=== PATIENT | female | born 1960 | race Caucasian/White ===

== ENCOUNTER 2021-07-15 06:24 | Day surgery (SDC) | payer BC ==
[2021-07-15] MEDS ORDERED: Sodium Chloride 0.9% 1,000 ML IV SCH (07:00)
[2021-07-15] MEDS ORDERED: Midazolam 1 MG/ML 2 ML SDV ONE (07:37)
[2021-07-15] MEDS ORDERED: Propofol 200 MG/20 ML SDV ONE (07:37)
[2021-07-15] MEDS ORDERED: fentaNYL 100 MCG/2 ML SDV ONE (07:37)
--- NOTE | 2021-07-15 11:14 | OR ---
DATE OF PROCEDURE: SURGEON: Abram Jensen MD PROCEDURE: Colonoscopy. FINDINGS: Normal colonoscopy. PREOPERATIVE DIAGNOSIS: Screening colonoscopy. POSTOPERATIVE DIAGNOSIS: Screening colonoscopy. RISKS: Risks, benefits, alternatives, and limitations including, but not limited to infection, bleeding, perforation, false positives and false negatives, and other risks not listed here and the patient understands these risks and wished to proceed. PROCEDURE IN DETAIL: The patient was placed in a left lateral decubitus position. Digital rectal exam was performed without abnormality. Scope was introduced and advanced atraumatically to the ileocecal valve. A photo was taken of the appendiceal orifice. The scope was brought back to the ascending, transverse, descending colon, and retroflexed. No evidence of old or new blood. No masses. No polyps. No diverticulosis. No colitis. No abnormalities on retroflexion. Greater than 8 minutes was spent removing the scope. Prep was acceptable, approximately 95% of the luminal surface could be seen. Abram Jensen MD /[id number]
== END 2021-07-15 09:30 | disposition home or self-care (01) ==
LOC: JP.SDS 06:24
PROVIDERS: ATTEND Surgery
DX: Z12.11 Encounter for screening for malignant neoplasm of colon (principal); I10 Essential (primary) hypertension; Z88.2 Allergy status to sulfonamides
CPT/HCPCS: 45378; J2250; J2704; J3010; J7030

== ENCOUNTER 2022-06-08 03:16 | Emergency (ER) | payer BC ==
[2022-06-08] MEDS ORDERED: Methocarbamol 500 MG Tab PO ONE (05:03)
== END 2022-06-08 06:22 | disposition home or self-care (01) ==
LOC: JP.ED 03:16
DX: M47.22 Other spondylosis with radiculopathy, cervical region (principal); M50.30 Other cervical disc degeneration, unspecified cervical region; I10 Essential (primary) hypertension; Z88.2 Allergy status to sulfonamides; Z79.899 Other long term (current) drug therapy; Z86.16 Personal history of COVID-19; Z90.710 Acquired absence of both cervix and uterus
CPT/HCPCS: 72125; 99283; A9270

== ENCOUNTER 2022-08-16 23:32 | Emergency (ER) | payer BC ==
[2022-08-17] MEDS ORDERED: Ketorolac 30 MG/ML SDV IM ONE (00:14)
[2022-08-17] MEDS ORDERED: predniSONE 10 MG Tab PO ONE (00:14)
== END 2022-08-17 00:51 | disposition home or self-care (01) ==
LOC: JP.ED 23:32
DX: M47.22 Other spondylosis with radiculopathy, cervical region (principal); M50.10 Cervical disc disorder with radiculopathy, unspecified cervical region; I10 Essential (primary) hypertension; Z88.2 Allergy status to sulfonamides; Z79.899 Other long term (current) drug therapy; Z86.16 Personal history of COVID-19
CPT/HCPCS: 96372; 99283; J1885

== ENCOUNTER 2024-08-27 10:31 | Emergency (ER) | payer BC ==
[2024-08-27 11:19] LABS: BASOPHILS PERCENT AUTO 0.3 % (0.1-1.3); EOSINOPHILS ABSOLUTE AUTO 0.06 K/uL (0.00-0.40); EOSINOPHILS PERCENT AUTO 0.9 % (0.0-5.4); HEMATOCRIT 42.8 % (34.3-46.0); IMMATURE GRAN PERCENT AUTO 0.1 % (0.0-0.7); LYMPHOCYTES ABSOLUTE AUTO 1.51 K/uL (0.8-3.3); LYMPHOCYTES PERCENT AUTO 22.2 % (11.4-47.7); MEAN CORPUSCULAR HEMOGLOBIN 30.9 pg (31.6-35.5); MEAN CORPUSCULAR VOLUME 88.2 fL (81.4-99.0); MONOCYTES ABSOLUTE AUTO 0.33 K/uL (0.20-0.90); MONOCYTES PERCENT AUTO 4.9 % (3.3-12.6); NEUTROPHILS ABSOLUTE AUTO 4.87 K/uL (1.0-7.6); NEUTROPHILS PERCENT AUTO 71.6 % (40.0-78.1); PLATELET COUNT,PLT 134 K/uL (130-375); RED BLOOD CELL COUNT 4.85 M/uL (3.77-5.24); WHITE BLOOD CELL COUNT,WBC 6.8 K/uL (3.2-11.0)
[2024-08-27 11:20] LABS: BASOPHILS ABSOLUTE AUTO 0.02 K/uL (0.00-0.10); IMMATURE GRAN ABSOLUTE AUTO 0.01 K/uL (0.00-0.23)
[2024-08-27 11:41] LABS: A/G RATIO 1.2 (1.2-2.2); ALANINE AMINOTRANSFERASE,ALT 18 U/L (12-78); ALBUMIN 3.8 g/dL (3.4-5.0); ALKALINE PHOSPHATASE 67 U/L (46-116); ANION GAP 5.7 mmol/L (5.0-14.0); ASPARTATE AMNIOTRANSFERASE,AST 16 U/L (15-37); BILIRUBIN TOTAL 0.7 mg/dL (0.2-1.0); BLOOD UREA NITROGEN,BUN 20 mg/dL (7-18); CALCIUM 9.1 mg/dL (8.5-10.1); CARBON DIOXIDE,CO2 31 mmol/L (21-32); CHLORIDE,CL 104 mmol/L (100-108); EST CRCL DRUG DOSING (CG) 54.24 mL/min; ESTIMATED GFR 63 mL/min (>60); GLUCOSE RANDOM 88 mg/dL (74-106); POTASSIUM,K 3.6 mmol/L (3.6-5.2); PROTEIN TOTAL,TP 7.1 g/dL (6.4-8.2); SODIUM,NA 141 mmol/L (140-148); TROPONIN I HIGH SENSITIVITY < 4.0 pg/mL (<=60.3)
[2024-08-27 12:05] LABS: CORONAVIRUS COVID-19 NAA NEGATIVE (NEGATIVE); INFLUENZA A NAA NEGATIVE (NEGATIVE); INFLUENZA B NAA NEGATIVE (NEGATIVE); RESPIRATORY SYNCYTIAL VIR NAA NEGATIVE (NEGATIVE)
== END 2024-08-27 14:14 | disposition home or self-care (01) ==
LOC: JP.ED 10:31
DX: R07.89 Other chest pain (principal); R00.2 Palpitations; I10 Essential (primary) hypertension; Z88.2 Allergy status to sulfonamides; Z79.899 Other long term (current) drug therapy; Z90.710 Acquired absence of both cervix and uterus
CPT/HCPCS: 0241U; 36415; 71046; 80053; 83735; 84484; 85025; 85379; 93005; 99285; 93010; 99284

== ENCOUNTER 2024-09-08 06:24 | Day surgery (SDC) | payer BC ==
[2024-09-08] MEDS ORDERED: Midazolam 1 MG/ML 2 ML SDV ONE (07:04)
[2024-09-08] MEDS ORDERED: Propofol 200 MG/20 ML SDV ONE (07:04)
[2024-09-08] MEDS ORDERED: fentaNYL 50 MCG/ML SDV ONE (07:04)
[2024-09-08] MEDS: Lactated Ringers 1,000 ML IV SCH (07:20)
== END 2024-09-08 09:30 | disposition home or self-care (01) ==
LOC: JP.SDS 06:24
PROVIDERS: ATTEND Surgery
DX: R13.10 Dysphagia, unspecified (principal); K22.89 Other specified disease of esophagus; I10 Essential (primary) hypertension; K21.9 Gastro-esophageal reflux disease without esophagitis
CPT/HCPCS: 00731-QZ; 88305; J2250; J2704; J3010; J7120